=== PATIENT | male | born 1985 | race African-American/Black ===

== ENCOUNTER 2021-05-07 14:19 | Inpatient (IN) | payer BC ==
[2021-05-07] MEDS ORDERED: IBUPROFEN 400 MG TABLET (FP) PO PRN (15:58)
[2021-05-07] MEDS ORDERED: MENTHOL/PHENOL 1 EACH UD MM PRN (15:58)
[2021-05-07] MEDS ORDERED: MAGNESIUM HYDROX 2400MG/30ML ORAL SUSPENSION 30 ML CUP PO PRN (15:58)
[2021-05-07] MEDS ORDERED: MAG HYDROX/AL HYDROX/SIMETH 30 ML UNIT-DOSE CUP PO PRN (15:58)
[2021-05-07] MEDS ORDERED: ONDANSETRON *ODT* 4 MG TABLET SL PRN (15:58)
[2021-05-07] MEDS ORDERED: MAGNESIUM CITRATE 300 ML BOTTLE PO PRN (15:58)
[2021-05-07] MEDS ORDERED: ACETAMINOPHEN 325 MG TABLET (FP) PO PRN ×2 (15:58)
[2021-05-07] MEDS ORDERED: BISMUTH SUBSALICYLATE 524 MG/30 ML PO PRN (15:58)
[2021-05-07 16:13] VITALS: BMI 19.6
[2021-05-07] MEDS ORDERED: chlordiazePOXIDE HCL 25 MG CAPSULE PO PRN (16:41)
[2021-05-07] MEDS ORDERED: NICOTINE 14 MG/24 HOURS TOPICAL PATCH TD PRN (17:19)
[2021-05-07] MEDS ORDERED: NICOTINE POLACRILEX 2 MG GUM BUC PRN (17:19)
[2021-05-07] MEDS ORDERED: hydrOXYzine PAMOATE 25 MG CAPSULE (FP) PO SCH (18:00)
[2021-05-07] MEDS: MELATONIN 5 MG TABLETS PO SCH (22:01)
[2021-05-07] MEDS: chlordiazePOXIDE HCL 25 MG CAPSULE PO SCH (22:02)
[2021-05-07] MEDS: levETIRAcetam 500 MG TABLET (FP) PO SCH (22:02)
[2021-05-07] MEDS: THIAMINE HCL 100 MG TABLET (FP) PO SCH (22:02)
[2021-05-07] MEDS: hydrOXYzine PAMOATE 25 MG CAPSULE (FP) PO PRN (22:02)
[2021-05-07] MEDS: METHOCARBAMOL 500 MG TABLET PO PRN (22:02)
[2021-05-07] MEDS: NICOTINE 10 MG CARTRIDGE (INHALER) IH PRN (23:24)
[2021-05-08] MEDS: chlordiazePOXIDE HCL 25 MG CAPSULE PO SCH ×4 (05:48→22:12)
[2021-05-08] MEDS: PRENATAL VITAMINS W/ FOLIC ACID TABLET (FP) PO SCH (10:39)
[2021-05-08] MEDS: PANTOPRAZOLE 40 MG TABLET PO SCH (10:39)
[2021-05-08] MEDS: levETIRAcetam 500 MG TABLET (FP) PO SCH ×2 (10:39→22:12)
[2021-05-08] MEDS: MAGNESIUM OXIDE 400 MG TABLET (FP) PO SCH (10:39)
[2021-05-08] MEDS ORDERED: FLU VACC QS2021-22(6MOS UP)/PF 60 MCG/0.5 ML SYRINGE IM ONE (13:00)
[2021-05-08] MEDS: NICOTINE 10 MG CARTRIDGE (INHALER) IH PRN (20:05)
[2021-05-08] MEDS: MELATONIN 5 MG TABLETS PO SCH (22:12)
[2021-05-08] MEDS: THIAMINE HCL 100 MG TABLET (FP) PO SCH (22:12)
[2021-05-08] MEDS: QUEtiapine FUMARATE 50 MG TABLET PO SCH (22:12)
[2021-05-09] MEDS: chlordiazePOXIDE HCL 25 MG CAPSULE PO SCH ×5 (06:43→22:22)
[2021-05-09 09:52] LABS: HEMATOCRIT 37.3 % (35.4-49); HEMOGLOBIN 12.5 GM/dL (11.7-16.9); MCH 30.1 pg (25.7-33.7); MCHC 33.7 g/dl (32.0-35.9); MEAN CELL VOLUME 89.4 fl (80-96); MEAN PLT VOLUME 7.1 fl (7.5-11.1); PLATELET COUNT 222 10^3/uL (134-434); RBC 4.17 M/mm3 (4.00-5.60); RDW 15.8 % (11.9-15.9); WHITE BLOOD COUNT 3.9 K/mm3 (4.0-10.0)
[2021-05-09 10:05] LABS: CALCIUM 8.8 mg/dL (8.5-10.1)
[2021-05-09 10:06] LABS: ALBUMIN 2.9 g/dl (3.4-5.0); BLOOD UREA NITROGEN 6.9 mg/dL (7-18)
[2021-05-09 10:11] LABS: BILIRUBIN,TOTAL 0.3 mg/dL (0.2-1)
[2021-05-09] MEDS: PRENATAL VITAMINS W/ FOLIC ACID TABLET (FP) PO SCH (10:15)
[2021-05-09] MEDS: PANTOPRAZOLE 40 MG TABLET PO SCH (10:15)
[2021-05-09] MEDS: levETIRAcetam 500 MG TABLET (FP) PO SCH ×2 (10:15→22:21)
[2021-05-09] MEDS: MAGNESIUM OXIDE 400 MG TABLET (FP) PO SCH (10:15)
[2021-05-09] MEDS: NICOTINE 10 MG CARTRIDGE (INHALER) IH PRN ×3 (10:17→18:30)
[2021-05-09 13:34] LABS: HIV INTERPRETATION NEGATIVE (NEGATIVE)
[2021-05-09] MEDS: THIAMINE HCL 100 MG TABLET (FP) PO SCH (22:21)
[2021-05-09] MEDS: QUEtiapine FUMARATE 50 MG TABLET PO SCH (22:21)
[2021-05-09] MEDS: MELATONIN 5 MG TABLETS PO SCH (22:21)
[2021-05-10] MEDS ORDERED: chlordiazePOXIDE HCL 10 MG CAPSULE PO PRN
[2021-05-10] MEDS: chlordiazePOXIDE HCL 10 MG CAPSULE PO SCH ×4 (07:50→22:28)
[2021-05-10] MEDS: PANTOPRAZOLE 40 MG TABLET PO SCH (10:35)
[2021-05-10] MEDS: MAGNESIUM OXIDE 400 MG TABLET (FP) PO SCH (10:35)
[2021-05-10] MEDS: PRENATAL VITAMINS W/ FOLIC ACID TABLET (FP) PO SCH (10:35)
[2021-05-10] MEDS: levETIRAcetam 500 MG TABLET (FP) PO SCH ×2 (10:35→22:27)
[2021-05-10] MEDS: NICOTINE 10 MG CARTRIDGE (INHALER) IH PRN ×3 (10:52→22:39)
[2021-05-10] MEDS: MELATONIN 5 MG TABLETS PO SCH (22:27)
[2021-05-10] MEDS: QUEtiapine FUMARATE 50 MG TABLET PO SCH (22:27)
[2021-05-10] MEDS: METHOCARBAMOL 500 MG TABLET PO PRN (22:27)
[2021-05-10] MEDS: hydrOXYzine PAMOATE 25 MG CAPSULE (FP) PO PRN (22:27)
[2021-05-10] MEDS: THIAMINE HCL 100 MG TABLET (FP) PO SCH (22:27)
[2021-05-11] MEDS: chlordiazePOXIDE HCL 10 MG CAPSULE PO SCH ×2 (06:13→18:25)
[2021-05-11] MEDS: MAGNESIUM OXIDE 400 MG TABLET (FP) PO SCH (10:18)
[2021-05-11] MEDS: PANTOPRAZOLE 40 MG TABLET PO SCH (10:18)
[2021-05-11] MEDS: PRENATAL VITAMINS W/ FOLIC ACID TABLET (FP) PO SCH (10:18)
[2021-05-11] MEDS: levETIRAcetam 500 MG TABLET (FP) PO SCH ×2 (10:18→22:16)
[2021-05-11] MEDS: NICOTINE 10 MG CARTRIDGE (INHALER) IH PRN ×2 (11:00→19:02)
[2021-05-11] MEDS: THIAMINE HCL 100 MG TABLET (FP) PO SCH (22:16)
[2021-05-11] MEDS: MELATONIN 5 MG TABLETS PO SCH (22:16)
[2021-05-11] MEDS: QUEtiapine FUMARATE 50 MG TABLET PO SCH (22:16)
[2021-05-11] MEDS: METHOCARBAMOL 500 MG TABLET PO PRN (22:17)
[2021-05-12] MEDS ORDERED: chlordiazePOXIDE HCL 10 MG CAPSULE PO ONE (05:00)
[2021-05-12] MEDS: NICOTINE 10 MG CARTRIDGE (INHALER) IH PRN (07:11)
[2021-05-12 09:04] VITALS: BP 106/61; PULSE 77; TEMP 97.5
== END 2021-05-12 09:41 | disposition home or self-care (01) | DRG 775 ==
LOC: YASAS 14:19 → Y3N 17:35
PROVIDERS: ADMIT Allergy & Immunology; ATTEND Allergy & Immunology
PROC: HZ2ZZZZ Detoxification Services for Substance Abuse Treatment (ICD-10-PCS; principal; 2021-05-07)
DX: F10.230 Alcohol dependence with withdrawal, uncomplicated (principal); F10.220 Alcohol dependence with intoxication, uncomplicated; F12.20 Cannabis dependence, uncomplicated; F17.210 Nicotine dependence, cigarettes, uncomplicated; F19.24 Other psychoactive substance dependence with psychoactive substance-induced mood disorder; G47.00 Insomnia, unspecified; Z91.14 Patient's other noncompliance with medication regimen; Z56.0 Unemployment, unspecified
CPT/HCPCS: 36415; 80053; 80177; 85027; 86780; 87389; C9803; U0003; U0005

== ENCOUNTER 2021-09-13 12:12 | Inpatient (IN) | payer BC ==
[2021-09-13] MEDS ORDERED: LOPERAMIDE HCL 2 MG CAPSULE PO PRN (12:37)
[2021-09-13] MEDS ORDERED: DICYCLOMINE HCL 10 MG CAPSULE PO PRN (12:37)
[2021-09-13] MEDS ORDERED: MAGNESIUM CITRATE 300 ML BOTTLE PO PRN (12:37)
[2021-09-13] MEDS ORDERED: ONDANSETRON *ODT* 4 MG TABLET SL PRN (12:37)
[2021-09-13] MEDS ORDERED: MAG HYDROX/AL HYDROX/SIMETH 30 ML UNIT-DOSE CUP PO PRN (12:37)
[2021-09-13] MEDS ORDERED: LORazepam 1 MG TABLET PO PRN (12:37)
[2021-09-13] MEDS ORDERED: ACETAMINOPHEN 325 MG TABLET (FP) PO PRN ×2 (12:37)
[2021-09-13] MEDS ORDERED: BENZOCAINE/MENTHOL (CHLORASEPTIC ) LOZENGE MM PRN (12:37)
[2021-09-13] MEDS ORDERED: METHOCARBAMOL 500 MG TABLET PO PRN (12:37)
[2021-09-13] MEDS ORDERED: BISMUTH SUBSALICYLATE 262 MG/15 ML BTL PO PRN (12:37)
[2021-09-13] MEDS ORDERED: MAGNESIUM HYDROX 2400MG/30ML ORAL SUSPENSION 30 ML CUP PO PRN (12:37)
[2021-09-13] MEDS ORDERED: IBUPROFEN 400 MG TABLET (FP) PO PRN (12:37)
[2021-09-13 13:30] VITALS: BMI 18.9
[2021-09-13] MEDS: PRENATAL VITAMINS W/ FOLIC ACID TABLET (FP) PO SCH (14:14)
[2021-09-13] MEDS: NICOTINE 14 MG/24 HOURS TOPICAL PATCH TD SCH (14:14)
[2021-09-13] MEDS: LORazepam 2 MG TABLET PO SCH ×3 (14:15→22:27)
[2021-09-13] MEDS: hydrOXYzine PAMOATE 25 MG CAPSULE (FP) PO SCH ×3 (14:20→22:27)
[2021-09-13] MEDS: THIAMINE HCL 100 MG TABLET (FP) PO SCH (22:27)
[2021-09-13] MEDS: levETIRAcetam 500 MG TABLET (FP) PO SCH (22:27)
[2021-09-13] MEDS: MELATONIN 5 MG TABLETS PO SCH (22:27)
[2021-09-14] MEDS: LORazepam 2 MG TABLET PO SCH ×4 (06:28→22:20)
[2021-09-14] MEDS: hydrOXYzine PAMOATE 25 MG CAPSULE (FP) PO SCH ×5 (07:10→22:17)
[2021-09-14] MEDS: PRENATAL VITAMINS W/ FOLIC ACID TABLET (FP) PO SCH (10:35)
[2021-09-14] MEDS: levETIRAcetam 500 MG TABLET (FP) PO SCH ×2 (10:35→22:17)
[2021-09-14] MEDS: PANTOPRAZOLE 40 MG TABLET PO SCH (10:35)
[2021-09-14] MEDS: NICOTINE 14 MG/24 HOURS TOPICAL PATCH TD SCH (10:36)
[2021-09-14 12:02] LABS: ALBUMIN 3.3 g/dl (3.4-5.0); BLOOD UREA NITROGEN 7.6 mg/dL (7-18); CALCIUM 8.8 mg/dL (8.5-10.1)
[2021-09-14 12:05] LABS: CREATININE 0.9 mg/dL (0.55-1.3)
[2021-09-14 12:07] LABS: BILIRUBIN,TOTAL 0.8 mg/dL (0.2-1); HEMATOCRIT 37.9 % (35.4-49); HEMOGLOBIN 12.9 GM/dL (11.7-16.9); MCH 30.9 pg (25.7-33.7); MCHC 34.1 g/dl (32.0-35.9); MEAN CELL VOLUME 90.7 fl (80-96); MEAN PLT VOLUME 7.3 fl (7.5-11.1); PLATELET COUNT 250 10^3/uL (134-434); RBC 4.18 M/mm3 (4.00-5.60); RDW 15.8 % (11.9-15.9); TOT PROT 7.2 g/dl (6.4-8.2); WHITE BLOOD COUNT 3.7 K/mm3 (4.0-10.0)
[2021-09-14] MEDS: MELATONIN 5 MG TABLETS PO SCH (22:17)
[2021-09-14] MEDS: THIAMINE HCL 100 MG TABLET (FP) PO SCH (22:17)
[2021-09-14] MEDS: NICOTINE 10 MG CARTRIDGE (INHALER) IH PRN (22:28)
[2021-09-15] MEDS: LORazepam 1 MG TABLET PO SCH ×2 (05:38→10:00)
[2021-09-15] MEDS: hydrOXYzine PAMOATE 25 MG CAPSULE (FP) PO SCH ×2 (05:38→10:00)
[2021-09-15] MEDS: NICOTINE 10 MG CARTRIDGE (INHALER) IH PRN (06:38)
[2021-09-15] MEDS: PRENATAL VITAMINS W/ FOLIC ACID TABLET (FP) PO SCH (09:59)
[2021-09-15] MEDS: levETIRAcetam 500 MG TABLET (FP) PO SCH (09:59)
[2021-09-15] MEDS: NICOTINE 14 MG/24 HOURS TOPICAL PATCH TD SCH (09:59)
[2021-09-15] MEDS: PANTOPRAZOLE 40 MG TABLET PO SCH (10:00)
[2021-09-15 14:08] LABS: SARS-CoV-2 NAA Not Detected (Not Detected)
[2021-09-15 18:12] VITALS: BP 141/99; PULSE 87; TEMP 98.1
[2021-09-16] MEDS ORDERED: LORazepam 0.5 MG TABLET PO PRN
[2021-09-16] MEDS ORDERED: LORazepam 0.5 MG TABLET PO SCH (05:00)
[2021-09-17] MEDS ORDERED: LORazepam 0.5 MG TABLET PO ONE (05:00)
== END 2021-09-15 09:47 | disposition left against medical advice (07) | DRG 770 ==
LOC: YASAS 12:12 → Y6N 13:14
PROVIDERS: ADMIT Allergy & Immunology; ATTEND Allergy & Immunology
PROC: HZ2ZZZZ Detoxification Services for Substance Abuse Treatment (ICD-10-PCS; principal; 2021-09-13)
DX: F10.230 Alcohol dependence with withdrawal, uncomplicated (principal); F12.20 Cannabis dependence, uncomplicated; F17.210 Nicotine dependence, cigarettes, uncomplicated; F41.9 Anxiety disorder, unspecified; G40.909 Epilepsy, unspecified, not intractable, without status epilepticus; Z87.19 Personal history of other diseases of the digestive system; Z91.14 Patient's other noncompliance with medication regimen
CPT/HCPCS: 36415; 80053; 80177; 85027; 86780; 87811; C9803-CS; U0003; U0005

== ENCOUNTER 2023-03-23 12:31 | Inpatient (IN) | payer BC ==
[2023-03-23 13:30] VITALS: BMI 17.8
[2023-03-23] MEDS ORDERED: diazePAM 5 MG TABLET PO PRN (13:44)
[2023-03-23] MEDS ORDERED: BENZONATATE 200 MG CAPSULE PO PRN (13:45)
[2023-03-23] MEDS ORDERED: ACETAMINOPHEN 325 MG TABLET (FP) PO PRN (13:45)
[2023-03-23] MEDS ORDERED: P-EPHED 60MG/TRIPROLIDI 2.5MG TABLET PO PRN (13:45)
[2023-03-23] MEDS ORDERED: IBUPROFEN 400 MG TABLET (FP) PO PRN (13:45)
[2023-03-23] MEDS ORDERED: NICOTINE POLACRILEX 2 MG GUM BUC PRN (13:45)
[2023-03-23] MEDS ORDERED: LOPERAMIDE HCL 2 MG CAPSULE PO PRN (13:45)
[2023-03-23] MEDS ORDERED: POLYETHYLENE GLYCOL (HEALTHYLAX) 3350 17 GM PACKET PO PRN (13:45)
[2023-03-23] MEDS ORDERED: guaiFENesin 600 MG TABLET.ER (FP) PO PRN (13:45)
[2023-03-23] MEDS ORDERED: DICYCLOMINE HCL 10 MG CAPSULE PO PRN (13:45)
[2023-03-23] MEDS ORDERED: IBUPROFEN 600 MG TABLET (FP) PO PRN (13:45)
[2023-03-23] MEDS ORDERED: ONDANSETRON *ODT* 4 MG TABLET SL PRN (13:45)
[2023-03-23] MEDS ORDERED: MAG HYDROX/AL HYDROX/SIMETH 30 ML UNIT-DOSE CUP PO PRN (13:45)
[2023-03-23] MEDS ORDERED: BENZOCAINE/MENTHOL (CHLORASEPTIC ) LOZENGE MM PRN (13:45)
[2023-03-23] MEDS ORDERED: BISMUTH SUBSALICYLATE 262 MG/15 ML BTL PO PRN (13:45)
[2023-03-23] MEDS ORDERED: MAGNESIUM HYDROX 2400MG/30ML ORAL SUSPENSION 30 ML CUP PO PRN (13:45)
[2023-03-23] MEDS ORDERED: levETIRAcetam 500 MG TABLET (FP) PO ONE (14:46)
[2023-03-23] MEDS: levETIRAcetam 500 MG TABLET (FP) PO SCH ×2 (14:50→22:11)
[2023-03-23] MEDS: diazePAM 5 MG TABLET PO SCH ×2 (17:19→22:12)
[2023-03-23] MEDS: THIAMINE HCL 100 MG TABLET (FP) PO SCH (22:11)
[2023-03-23] MEDS: MELATONIN 5 MG TABLETS PO SCH (22:12)
[2023-03-24] MEDS: diazePAM 5 MG TABLET PO SCH ×4 (05:11→22:56)
[2023-03-24] MEDS: METHOCARBAMOL 500 MG TABLET PO PRN (10:10)
[2023-03-24] MEDS: hydrOXYzine PAMOATE 25 MG CAPSULE (FP) PO PRN (10:10)
[2023-03-24] MEDS: PRENATAL VITAMINS W/ FOLIC ACID TABLET (FP) PO SCH (10:10)
[2023-03-24] MEDS: levETIRAcetam 500 MG TABLET (FP) PO SCH ×2 (10:10→22:57)
[2023-03-24 10:49] LABS: HEMATOCRIT 36.9 % (35.4-49); HEMOGLOBIN 12.4 GM/dL (11.7-16.9); MCH 31.3 pg (25.7-33.7); MCHC 33.5 g/dl (32.0-35.9); MEAN CELL VOLUME 93.4 fl (80-96); MEAN PLT VOLUME 7.2 fl (7.5-11.1); PLATELET COUNT 308 10^3/uL (134-434); RBC 3.95 M/mm3 (4.00-5.60); RDW 15.7 % (11.9-15.9); WHITE BLOOD COUNT 3.3 K/mm3 (4.0-10.0)
[2023-03-24 10:51] LABS: CHLORIDE 101 mmol/L (98-107); POTASSIUM 3.7 mmol/L (3.5-5.1); SODIUM 134 mmol/L (136-145)
[2023-03-24 10:57] LABS: ALBUMIN 3.5 g/dl (3.4-5.0); ANION GAP 8 mmol/L (4-13); BLOOD UREA NITROGEN 6.7 mg/dL (7-18); CO2 26 mmol/L (21-32); GLUCOSE,RANDOM 95 mg/dL (74-106)
[2023-03-24 11:00] LABS: CREATININE 0.8 mg/dL (0.55-1.3); SGOT/AST 45 U/L (15-37); SGPT/ALT 26 U/L (13-61)
[2023-03-24 11:01] LABS: BILIRUBIN,TOTAL 0.6 mg/dL (0.2-1); TOT PROT 7.2 g/dl (6.4-8.2)
[2023-03-24 11:03] LABS: ALK PHOS 106 U/L (45-117)
[2023-03-24] MEDS: MELATONIN 5 MG TABLETS PO SCH (22:57)
[2023-03-24] MEDS: THIAMINE HCL 100 MG TABLET (FP) PO SCH (22:58)
[2023-03-25] MEDS: diazePAM 5 MG TABLET PO SCH ×3 (05:33→22:11)
[2023-03-25] MEDS: hydrOXYzine PAMOATE 25 MG CAPSULE (FP) PO PRN (09:39)
[2023-03-25] MEDS: levETIRAcetam 500 MG TABLET (FP) PO SCH ×2 (09:39→22:11)
[2023-03-25] MEDS: PRENATAL VITAMINS W/ FOLIC ACID TABLET (FP) PO SCH (09:39)
[2023-03-25] MEDS: METHOCARBAMOL 500 MG TABLET PO PRN (09:39)
[2023-03-25] MEDS: MELATONIN 5 MG TABLETS PO SCH (22:11)
[2023-03-25] MEDS: QUEtiapine FUMARATE 50 MG TABLET PO PRN (22:11)
[2023-03-25] MEDS: THIAMINE HCL 100 MG TABLET (FP) PO SCH (22:11)
[2023-03-26] MEDS: diazePAM 5 MG TABLET PO SCH ×2 (05:45→17:15)
[2023-03-26] MEDS: METHOCARBAMOL 500 MG TABLET PO PRN ×2 (05:46→22:04)
[2023-03-26] MEDS: levETIRAcetam 500 MG TABLET (FP) PO SCH ×2 (09:47→22:04)
[2023-03-26] MEDS: hydrOXYzine PAMOATE 25 MG CAPSULE (FP) PO PRN (09:48)
[2023-03-26] MEDS: PRENATAL VITAMINS W/ FOLIC ACID TABLET (FP) PO SCH (09:48)
[2023-03-26] MEDS: THIAMINE HCL 100 MG TABLET (FP) PO SCH (22:03)
[2023-03-26] MEDS: QUEtiapine FUMARATE 50 MG TABLET PO PRN (22:04)
[2023-03-26] MEDS: MELATONIN 5 MG TABLETS PO SCH (22:04)
[2023-03-27] MEDS ORDERED: diazePAM 5 MG TABLET PO ONE (06:00)
[2023-03-27 09:04] VITALS: BP 107/67; PULSE 80; RESP 18; TEMP 97.7
[2023-03-27] MEDS: levETIRAcetam 500 MG TABLET (FP) PO SCH (10:32)
[2023-03-27] MEDS: PRENATAL VITAMINS W/ FOLIC ACID TABLET (FP) PO SCH (10:32)
== END 2023-03-27 09:10 | disposition home or self-care (01) | DRG 775 ==
LOC: YASAS 12:31 → Y6N 14:08
PROVIDERS: ADMIT Allergy & Immunology; ATTEND Surgery
PROC: HZ2ZZZZ Detoxification Services for Substance Abuse Treatment (ICD-10-PCS; principal; 2023-03-23)
DX: F10.230 Alcohol dependence with withdrawal, uncomplicated (principal); F12.20 Cannabis dependence, uncomplicated; F17.210 Nicotine dependence, cigarettes, uncomplicated; F10.24 Alcohol dependence with alcohol-induced mood disorder; F19.24 Other psychoactive substance dependence with psychoactive substance-induced mood disorder; F29 Unspecified psychosis not due to a substance or known physiological condition; G47.00 Insomnia, unspecified; R56.1 Post traumatic seizures; Z87.820 Personal history of traumatic brain injury; Z87.19 Personal history of other diseases of the digestive system
CPT/HCPCS: 36415; 80053; 80307; 85027; 86780; 87635; 87811

== ENCOUNTER 2023-08-07 12:46 | Inpatient (IN) | payer BC ==
[2023-08-07 13:23] VITALS: BMI 17.4
[2023-08-07] MEDS ORDERED: NALOXONE HCL (KLOXXADO) 8 MG SPRAY NS PRN (13:37)
[2023-08-07] MEDS ORDERED: POLYETHYLENE GLYCOL (HEALTHYLAX) 3350 17 GM PACKET PO PRN (13:37)
[2023-08-07] MEDS ORDERED: BISMUTH SUBSALICYLATE 524 MG/30 ML PO PRN (13:37)
[2023-08-07] MEDS ORDERED: guaiFENesin 600 MG TABLET.ER (FP) PO PRN (13:37)
[2023-08-07] MEDS ORDERED: MAGNESIUM HYDROX 2400MG/30ML ORAL SUSPENSION 30 ML CUP PO PRN (13:37)
[2023-08-07] MEDS ORDERED: LOPERAMIDE HCL 2 MG CAPSULE PO PRN (13:37)
[2023-08-07] MEDS ORDERED: BENZOCAINE/MENTHOL (CHLORASEPTIC ) LOZENGE MM PRN (13:37)
[2023-08-07] MEDS ORDERED: IBUPROFEN 400 MG TABLET (FP) PO PRN (13:37)
[2023-08-07] MEDS ORDERED: diazePAM 5 MG TABLET PO PRN (13:37)
[2023-08-07] MEDS ORDERED: IBUPROFEN 600 MG TABLET (FP) PO PRN (13:37)
[2023-08-07] MEDS ORDERED: ONDANSETRON *ODT* 4 MG TABLET SL PRN (13:37)
[2023-08-07] MEDS ORDERED: ACETAMINOPHEN 325 MG TABLET (FP) PO PRN (13:37)
[2023-08-07] MEDS ORDERED: BENZONATATE 200 MG CAPSULE PO PRN (13:37)
[2023-08-07] MEDS ORDERED: MAG HYDROX/AL HYDROX/SIMETH 30 ML UNIT-DOSE CUP PO PRN (13:37)
[2023-08-07] MEDS ORDERED: NALOXONE HCL 0.4 MG/ML VIAL IM PRN (13:37)
[2023-08-07] MEDS ORDERED: DICYCLOMINE HCL 10 MG CAPSULE PO PRN (13:37)
[2023-08-07] MEDS: PRENATAL VITAMINS W/ FOLIC ACID TABLET (FP) PO SCH (14:38)
[2023-08-07] MEDS: NICOTINE 14 MG/24 HOURS TOPICAL PATCH TD SCH (14:38)
[2023-08-07] MEDS ORDERED: NICOTINE 14 MG/24 HOURS TOPICAL PATCH TD ONE (14:40)
[2023-08-07] MEDS ORDERED: PRENATAL VITAMINS W/ FOLIC ACID TABLET (FP) PO ONE (14:40)
[2023-08-07] MEDS: levETIRAcetam 500 MG TABLET (FP) PO ONE (15:18)
[2023-08-07] MEDS: diazePAM 5 MG TABLET PO SCH (17:22)
[2023-08-07] MEDS: QUEtiapine FUMARATE 50 MG TABLET PO SCH (22:24)
[2023-08-07] MEDS: levETIRAcetam 500 MG TABLET (FP) PO SCH (22:24)
[2023-08-07] MEDS: MELATONIN 5 MG TABLETS PO SCH (22:24)
[2023-08-07] MEDS: THIAMINE HCL 100 MG TABLET (FP) PO SCH (22:24)
[2023-08-08] MEDS: METHOCARBAMOL 500 MG TABLET PO PRN (10:09)
[2023-08-08] MEDS: hydrOXYzine PAMOATE 25 MG CAPSULE (FP) PO PRN (10:09)
[2023-08-08] MEDS: PANTOPRAZOLE 40 MG TABLET PO SCH (10:09)
[2023-08-08 12:15] LABS: HEMATOCRIT 37.1 % (35.4-49); HEMOGLOBIN 12.3 GM/dL (11.7-16.9); MCH 31.2 pg (25.7-33.7); MEAN CELL VOLUME 94.4 fl (80-96); MEAN PLT VOLUME 6.9 fl (7.5-11.1); PLATELET COUNT 323 10^3/uL (134-434); RBC 3.93 M/mm3 (4.00-5.60); RDW 16.2 % (11.9-15.9); WHITE BLOOD COUNT 4.1 K/mm3 (4.0-10.0)
[2023-08-08 12:21] LABS: CHLORIDE 107 mmol/L (98-107); POTASSIUM 3.5 mmol/L (3.5-5.1); SODIUM 141 mmol/L (136-145)
[2023-08-08 12:33] LABS: ALBUMIN 3.1 g/dl (3.4-5.0); ANION GAP 8 mmol/L (4-13); CALCIUM 8.6 mg/dL (8.5-10.1); CO2 26 mmol/L (21-32); GLUCOSE,RANDOM 88 mg/dL (74-106)
[2023-08-08 12:37] LABS: CREATININE 0.8 mg/dL (0.55-1.3); SGOT/AST 32 U/L (15-37); SGPT/ALT 26 U/L (13-61)
[2023-08-08 12:38] LABS: BILIRUBIN,TOTAL 0.2 mg/dL (0.2-1); TOT PROT 6.5 g/dl (6.4-8.2)
[2023-08-08 12:39] LABS: ALK PHOS 76 U/L (45-117)
[2023-08-08] MEDS: diazePAM 5 MG TABLET PO SCH (18:10)
[2023-08-08] MEDS: QUEtiapine FUMARATE 50 MG TABLET PO PRN (22:02)
[2023-08-09] MEDS: diazePAM 5 MG TABLET PO SCH (05:41)
[2023-08-09] MEDS: PNEUMOC 20-VAL CONJ-DIP CRM/PF 0.5 ML SYRINGE IM ONE (13:26)
[2023-08-10] MEDS: diazePAM 5 MG TABLET PO SCH (05:58)
[2023-08-11] MEDS: diazePAM 5 MG TABLET PO ONE (05:43)
[2023-08-11 09:19] VITALS: BP 105/65; PULSE 91; RESP 18; TEMP 98
== END 2023-08-11 10:15 | disposition home or self-care (01) | DRG 775 ==
LOC: YASAS 12:46 → Y6N 13:50
PROVIDERS: ADMIT Allergy & Immunology; ATTEND Surgery
PROC: HZ2ZZZZ Detoxification Services for Substance Abuse Treatment (ICD-10-PCS; principal; 2023-08-07)
DX: F10.230 Alcohol dependence with withdrawal, uncomplicated (principal); F12.20 Cannabis dependence, uncomplicated; F17.210 Nicotine dependence, cigarettes, uncomplicated; F19.282 Other psychoactive substance dependence with psychoactive substance-induced sleep disorder; F19.280 Other psychoactive substance dependence with psychoactive substance-induced anxiety disorder; F19.24 Other psychoactive substance dependence with psychoactive substance-induced mood disorder; F25.9 Schizoaffective disorder, unspecified; G40.909 Epilepsy, unspecified, not intractable, without status epilepticus; Z87.19 Personal history of other diseases of the digestive system; Z87.820 Personal history of traumatic brain injury
CPT/HCPCS: 36415; 80053; 80177; 80305; 80307; 85027; 86780; 87635; 90677; 93005; 93010